=== PATIENT | female | born 1970 | race Caucasian/White ===

== ENCOUNTER 2019-03-07 18:41 | Inpatient (IN) ==
[2019-03-07] MEDS ORDERED: NS 2,000 ML ONE (18:58)
[2019-03-07] MEDS ORDERED: NS 1,000 ML IV ONE (19:28)
[2019-03-07] MEDS ORDERED: ZOFRAN IV ONE (19:35)
[2019-03-07] MEDS ORDERED: FENTANYL IV ONE ×2 (19:35→21:05)
[2019-03-07 20:20] LABS: URINE SOURCE CATH
[2019-03-07 20:23] LABS: BASO# 0.07 X1000 (0.0-0.2); BASO% 0.8 % (0.0-0.8); EOS% 1.2 % (0.0-10.0); HEMATOCRIT 37.3 % (37.0-47.0); HEMOGLOBIN 12.5 g/dL (12.0-16.0); IMM GRAN# 0.03 X1000 (0.0-0.04); IMM GRAN% 0.4 % (0.0-0.5); LYMPH# 3.24 X1000 (1.2-3.4); LYMPH% 37.9 % (20.5-51.1); MCH 28.7 PG (27-31); MCHC 33.5 g/dL (33-37); MCV 85.6 FL (81-99); MONO# 0.51 X1000 (0.11-0.59); NEUT# 4.59 X1000 (1.4-6.5); NEUT% 53.7 % (42.2-75.2); PLT 408 X1000 (130-400); RBC 4.36 XMIL (4.2-5.4); RDW 14.2 % (11.5-14.5); WBC 8.54 X1000 (4.8-10.8)
[2019-03-07 20:24] LABS: BILIRUBIN URINE NEGATIVE (NEGATIVE); BLOOD URINE SMALL (NEGATIVE); COLOR YELLOW; GLUCOSE URINE NEGATIVE (NEGATIVE); KETONE URINE NEGATIVE (NEGATIVE); LEUKOCYTES URINE NEGATIVE (NEGATIVE); NITRITE URINE NEGATIVE (NEGATIVE); PROTEIN URINE 200 mg/dL (NEGATIVE); SP GRAVITY URINE 1.016; TURBIDITY URINE HAZY (CLEAR); UROBILINOGEN URINE NORMAL (NORMAL)
[2019-03-07 20:28] LABS: UR EPITHELIAL CELLS >10 /HPF (<10); URINE BACTERIA NEGATIVE /HPF; URINE RBC <10 /HPF (<10); URINE WBC <10 /HPF (<10)
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
[2019-03-07] MEDS ORDERED: MARCAINE 0.5% PF ONE (20:36)
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
[2019-03-07 20:39] LABS: URINE CASTS GRANULAR PRESENT
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
[2019-03-07 20:43] LABS: UR AMPHETAMINES QUAL NONE DETECTED (NONE DETECT); UR BARBITUATES QUAL NONE DETECTED (NONE DETECT); UR BENZODIAZEPIN QUAL NONE DETECTED (NONE DETECT); UR CANNABINOIDS QUAL NONE DETECTED (NONE DETECT); UR COCAINE QUAL NONE DETECTED (NONE DETECT); UR METHADONE QUAL NONE DETECTED (NONE DETECT); UR OPIATES QUAL NONE DETECTED (NONE DETECT); UR OXYCODONE QUAL PRESUMPTIVE POSITIVE (NONE DETECT); UR PCP QUAL NONE DETECTED (NONE DETECT)
[2019-03-07 20:47] LABS: AGAP 13; ALB/GLOB RATIO 1.4; ALBUMIN 4.4 g/dL (3.5-5.0); ALKALINE PHOSPHATASE 95 U/L (32-104); BUN 5 mg/dL (8-22); CALCIUM 9.2 mg/dL (8.8-10.2); CHLORIDE 102 mmol/L (98-107); COSMO 272; CREATININE 0.7 mg/dL (0.5-0.9); ESTIMATED GFR > 60; GLUCOSE 111 mg/dL (70-104); GOT 107 U/L (10-30); GPT 95 U/L (10-36); LIPASE 27 U/L (13-60); POTASSIUM 3.4 mmol/L (3.5-5.1); SODIUM 137 mmol/L (136-145); TCO2 22 mmol/L (25-35); TOTAL BILIRUBIN 0.38 mg/dL (0.20-1.00); TOTAL PROTEIN 7.5 g/dL (6.3-8.3)
[2019-03-07] MEDS ORDERED: FENTANYL ONE (20:51)
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
[2019-03-07] MEDS ORDERED: MORPHINE IV ONE ×2 (21:39→23:21)
[2019-03-07] MEDS ORDERED: MORPHINE ONE (21:41)
--- NOTE | 2019-03-07 22:01 | Diag Imaging Result Doc PS360 ---
EXAM: CHEST-1 VIEW INDICATION: s/p chest tube placement TECHNIQUE: 2 views COMPARISON: 03/07/2019 FINDINGS: There has been interval placement of a chest tube. The tip eject over the medial left lung base. There is been significant improvement of the left-sided pneumothorax since placement of the T8. There is a small residual pneumothorax at the left lung base that appears to be less than 10% of the left hemithorax. There is soft tissue gas overlying the left chest wall since placement of the tube. The chest is stable, otherwise. Cardiac silhouette is unchanged. IMPRESSION: Interval placement of left chest tube as described with significant decrease in the left-sided pneumothorax. Electronically signed by Rajat March 03/07/2019 9:59 PM
[2019-03-07] MEDS ORDERED: NORCO-10 PO PRN (23:43)
[2019-03-08] MEDS ORDERED: MORPHINE IV PRN (01:02)
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
[2019-03-08] MEDS ORDERED: TORADOL IV ONE (01:51)
[2019-03-08] MEDS: ROBAXIN PO SCH ×4 (02:05→21:15)
[2019-03-08] MEDS: DILAUDID IV PRN ×3 (03:51→17:18)
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
[2019-03-08] MEDS: FERROUS SULFATE PO SCH (08:18)
[2019-03-08] MEDS: LYRICA PO SCH (08:18)
[2019-03-08] MEDS: NEXIUM PO SCH (08:18)
[2019-03-08] MEDS: VITAMIN D PO SCH (08:18)
[2019-03-08] MEDS: PERCOCET-10 PO PRN ×2 (08:19→14:18)
[2019-03-08] MEDS: PROZAC PO SCH (08:19)
--- NOTE | 2019-03-08 08:19 | Diag Imaging Result Doc PS360 ---
EXAM: CHEST-PORTABLE 03/08/2019 HISTORY: pneumothorax TECHNIQUE: AP portable at 0807 COMMENT: There is a left chest tube over the hemidiaphragm. There is a subpulmonic pneumothorax and soft tissue emphysema is present laterally. These findings have diminished slightly since the previous study of 03/07/2019. The inspiration is much less optimal than on the previous study however. There is worsened atelectasis in the left lower lobe. IMPRESSION: Left lower lobe atelectasis. Small residual pneumothorax and soft tissue emphysema. Electronically signed by Haresh Quiroz 03/08/2019 8:16 AM
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
[2019-03-08] MEDS: TORADOL IV SCH ×3 (10:00→21:15)
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
[2019-03-09] MEDS: DILAUDID IV PRN ×2 (00:40→13:01)
[2019-03-09] MEDS: TORADOL IV SCH ×4 (03:29→20:41)
[2019-03-09] MEDS: PERCOCET-10 PO PRN ×4 (06:29→20:47)
--- NOTE | 2019-03-09 07:48 | Diag Imaging Result Doc PS360 ---
EXAM: CHEST-PORTABLE INDICATION: ptx TECHNIQUE: One view COMPARISON: 03/08/2019 FINDINGS: The left chest tube is in stable position. No residual pneumothorax can be identified by plain radiograph. There is still soft tissue gas overlying the left chest wall. No new consolidation is identified. Cardiac silhouette is stable. IMPRESSION: Gross resolution of the left pneumothorax by plain radiograph. Essentially stable chest, otherwise. Electronically signed by Rajat March 03/09/2019 7:46 AM
[2019-03-09] MEDS: PROZAC PO SCH (08:15)
[2019-03-09] MEDS: FERROUS SULFATE PO SCH (08:15)
[2019-03-09] MEDS: LYRICA PO SCH (08:15)
[2019-03-09] MEDS: ROBAXIN PO SCH ×3 (08:15→20:41)
[2019-03-09] MEDS: VITAMIN D PO SCH (08:15)
[2019-03-09] MEDS: NEXIUM PO SCH (08:15)
[2019-03-09] MEDS ORDERED: DULCOLAX PR PRN (11:48)
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
[2019-03-09] MEDS: COLACE PO SCH ×2 (14:56→20:42)
[2019-03-10] MEDS: PERCOCET-10 PO PRN ×4 (01:03→21:17)
[2019-03-10] MEDS: TORADOL IV SCH ×4 (03:05→21:17)
--- NOTE | 2019-03-10 07:29 | Diag Imaging Result Doc PS360 ---
EXAM: CHEST-PORTABLE 03/10/2019 HISTORY: pneumothorax follow up TECHNIQUE: AP portable at 0632 COMMENT: There is atelectasis versus pneumonia in the left lower lobe. There is a chest tube on the left. The soft tissue emphysema seen on previous studies has diminished slightly. There is no appreciable pneumothorax. The right lung is essentially unchanged. IMPRESSION: Left lower lobe atelectasis. Improved soft tissue emphysema. Electronically signed by Haresh Quiroz 03/10/2019 7:27 AM
[2019-03-10] MEDS: ROBAXIN PO SCH ×3 (08:31→21:17)
[2019-03-10] MEDS: COLACE PO SCH ×2 (08:31→21:18)
[2019-03-10] MEDS: FERROUS SULFATE PO SCH (08:31)
[2019-03-10] MEDS: PROZAC PO SCH (08:31)
[2019-03-10] MEDS: VITAMIN D PO SCH (08:31)
[2019-03-10] MEDS: LYRICA PO SCH (08:31)
[2019-03-10] MEDS: NEXIUM PO SCH (08:31)
[2019-03-10] MEDS: DILAUDID IV PRN (09:51)
--- NOTE | 2019-03-10 14:31 | GENERAL SURGERY PROGRESS NOTE ---
DATE: 03/10/2019 She has good breath sounds bilaterally. There is no air leak noted. Her chest x-ray easily shows resolution of her pneumothorax. PLAN: The plan today is remove her chest tube. We will repeat her chest x-ray tomorrow. Continue her mobility. cc: MD Rui Mac MD
[2019-03-11] MEDS: PERCOCET-10 PO PRN ×6 (01:06→22:03)
[2019-03-11] MEDS: TORADOL IV SCH (03:26)
--- NOTE | 2019-03-11 07:23 | Diag Imaging Result Doc PS360 ---
EXAM: CHEST-PORTABLE 03/11/2019 HISTORY: recent pneumothorax TECHNIQUE: AP portable at 0605 COMMENT: There is retrocardiac opacity and volume loss similar in appearance to 03/10/2019. The lungs are slightly better expanded. The chest tube has been removed. There is slightly diminished soft tissue emphysema. The posterior lateral left sixth rib fracture is again noted. Otherwise there has been no significant change. IMPRESSION: Left lower lobe atelectasis. No evidence of recurrent pneumothorax. Electronically signed by Haresh Quiroz 03/11/2019 7:20 AM
[2019-03-11] MEDS: ROBAXIN PO SCH ×3 (08:32→20:52)
[2019-03-11] MEDS: PROZAC PO SCH (08:32)
[2019-03-11] MEDS: LYRICA PO SCH ×2 (08:32→20:52)
[2019-03-11] MEDS: FERROUS SULFATE PO SCH (08:32)
[2019-03-11] MEDS: NEXIUM PO SCH (08:32)
[2019-03-11] MEDS: COLACE PO SCH ×2 (08:33→20:53)
[2019-03-11] MEDS: VITAMIN D PO SCH (08:33)
--- NOTE | 2019-03-11 10:17 | GENERAL SURGERY PROGRESS NOTE ---
DATE: 03/11/2019 TIME: 9:45 in the morning. SUBJECTIVE: Ms. López is awake and alert this morning. OBJECTIVE: Vitals: She is afebrile, heart rate 73, blood pressure 102/66. Her 02 saturation on room air is 95%. Chest x-ray shows no recurrent pneumothorax. ASSESSMENT: Her primary complaints today are some foul-smelling urine as well as some mild shortness of breath. She also was concerned about her Lyrica dose. PLAN: The plan will be to mobilize her more today. We will do a urinalysis. We will also evaluate her Lyrica dose to see if we can up it near what she typically takes. Hopefully, she can go home by tomorrow. cc: MD Rui Mac MD
[2019-03-12] MEDS: PERCOCET-10 PO PRN ×2 (02:35→08:57)
[2019-03-12 07:49] VITALS: BP 152/99
[2019-03-12] MEDS: NEXIUM PO SCH (08:56)
[2019-03-12] MEDS: PROZAC PO SCH (08:56)
[2019-03-12] MEDS: FERROUS SULFATE PO SCH (08:56)
[2019-03-12] MEDS: ROBAXIN PO SCH (08:56)
[2019-03-12] MEDS: VITAMIN D PO SCH (08:56)
[2019-03-12] MEDS: LYRICA PO SCH (08:57)
[2019-03-12] MEDS: COLACE PO SCH (08:57)
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
== END 2019-03-12 12:15 | disposition home or self-care (01) | DRG 964 ==
LOC: ED 18:41 → 3N 18:42
PROVIDERS: ADMIT Surgery; ATTEND Surgery
CPT/HCPCS: 51701; 51702; 70450; 71010; 71045; 71260; 72125; 72128; 72170; 73030; 73060; 73080; 73110; 73130; 74177; 80053; 80101; 80301; 80307; 80320; 80324; 80345; 80346; 80353; 80358; 80361; 80365; 81001; 82055; 83690; 83992; 85025; 86850; 86900; 86901; 93005; 94761; 96361; 96374; 96375; 96376; 97162; 97530; 99285; 99291; A9270; G0431; G0434; G0479; G0480; G6040; J1170; J1885; J2270; J2405; J3010; J7030; P9612; Q9967; S0020